=== PATIENT | male | born 1970 | race Caucasian/White ===

== ENCOUNTER 2021-01-21 09:08 | Outpatient (REF) | payer BC, SELFPAY ==
[2021-01-21 11:30] LABS: Estimated Average Glucose 169 mg/dL; Hemoglobin A1c % 7.5 %
[2021-01-21 11:31] LABS: Alanine Aminotransferase 38 U/L (0-40); Albumin Level 4.5 g/dL (3.5-5.0); Alkaline Phosphatase 60 U/L (39-117); Anion Gap 15 (12-20); Aspartate Amino Transferase 24 U/L (5-37); Bilirubin Total 1.3 mg/dL (0.0-1.0); Blood Urea Nitrogen 17 mg/dL (9-16); Calcium 9.7 mg/dL (8.4-10.2); Carbon Dioxide 26 mmol/L (22-29); Chloride 104 mmol/L (96-108); Cholesterol 175 mg/dL; Estimated Glomerular Filt Rate 59; Glucose Fasting 166 mg/dL (60-99); HDL Cholesterol 36 mg/dL; LDL Cholesterol Calculated 113 mg/dl; Potassium 4.3 mmol/L (3.3-5.1); Sodium 141 mmol/L (135-145); Total Protein 7.2 g/dL (6.5-8.0); Triglycerides 130 mg/dL
[2021-01-21 11:54] LABS: Prostate Specific Antigen 0.31 ng/mL (<0.05-4.0)
[2021-01-21 12:06] LABS: Microalbum/Creatinine Ratio Ur 12.3 ug/mg cr
== END 2021-01-21 09:09 | disposition home or self-care (01) ==
LOC: HO.MANLDS 09:08
PROVIDERS: PCP Internal Medicine; Visit Provider Internal Medicine
DX: E11.9 Type 2 diabetes mellitus without complications (principal); Z12.5 Encounter for screening for malignant neoplasm of prostate
CPT/HCPCS: 36415; 80053; 80061; 82043; 83036; 84153

== ENCOUNTER 2021-07-01 08:06 | Outpatient (REF) | payer BC, SELFPAY ==
[2021-07-01 11:15] LABS: Estimated Average Glucose 186 mg/dL; Hemoglobin A1c % 8.1 %
== END 2021-07-01 08:07 | disposition home or self-care (01) ==
LOC: HO.MANLDS 08:06
PROVIDERS: PCP Internal Medicine; Visit Provider Internal Medicine
DX: E11.9 Type 2 diabetes mellitus without complications (principal)
CPT/HCPCS: 36415; 83036

== ENCOUNTER 2021-12-16 07:54 | Outpatient (REF) | payer BC, SELFPAY ==
[2021-12-16 11:45] LABS: Estimated Average Glucose 140 mg/dL; Hemoglobin A1c % 6.5 %
[2021-12-16 12:00] LABS: Prostate Specific Antigen 0.22 ng/mL (<0.05-4.0)
[2021-12-16 12:00] LABS: Creatinine Urine 204.57 mg/dL; Microalbum/Creatinine Ratio Ur 12.2 ug/mg cr
[2021-12-16 13:37] LABS: Alanine Aminotransferase 49 U/L (0-40); Albumin Level 4.3 g/dL (3.5-5.0); Alkaline Phosphatase 53 U/L (39-117); Anion Gap 15 (12-20); Aspartate Amino Transferase 26 U/L (5-37); Bilirubin Total 0.8 mg/dL (0.0-1.0); Blood Urea Nitrogen 13 mg/dL (9-16); Calcium 9.5 mg/dL (8.4-10.2); Carbon Dioxide 28 mmol/L (22-29); Cholesterol 174 mg/dL; Estimated Glomerular Filt Rate > 60; Glucose Random 126 mg/dL (60-115); HDL Cholesterol 38 mg/dL; LDL Cholesterol Calculated 118 mg/dl; Potassium 4.9 mmol/L (3.3-5.1); Sodium 143 mmol/L (135-145); Triglycerides 94 mg/dL
[2021-12-16 14:16] LABS: Chloride 105 mmol/L (96-108)
== END 2021-12-16 07:55 | disposition home or self-care (01) ==
LOC: HO.MANLDS 07:54
PROVIDERS: Visit Provider Internal Medicine
DX: Z12.5 Encounter for screening for malignant neoplasm of prostate (principal); E11.9 Type 2 diabetes mellitus without complications
CPT/HCPCS: 36415; 80053; 80061; 82043; 83036; 84153

== ENCOUNTER 2022-06-02 07:55 | Outpatient (REF) | payer BC, SELFPAY ==
[2022-06-02 12:04] LABS: Estimated Average Glucose 166 mg/dL; Hemoglobin A1c % 7.4 %
[2022-06-02 12:33] LABS: Alanine Aminotransferase 48 U/L (0-40); Albumin Level 4.3 g/dL (3.5-5.0); Alkaline Phosphatase 55 U/L (39-117); Anion Gap 12 (12-20); Aspartate Amino Transferase 25 U/L (5-37); Bilirubin Total 0.9 mg/dL (0.0-1.0); Blood Urea Nitrogen 17 mg/dL (9-16); Calcium 9.8 mg/dL (8.4-10.2); Carbon Dioxide 30 mmol/L (22-29); Chloride 106 mmol/L (96-108); Cholesterol 178 mg/dL; Estimated Glomerular Filt Rate > 60; Glucose Fasting 144 mg/dL (60-99); HDL Cholesterol 35 mg/dL; LDL Cholesterol Calculated 116 mg/dl; Potassium 4.7 mmol/L (3.3-5.1); Sodium 143 mmol/L (135-145); Triglycerides 135 mg/dL
[2022-06-02 12:40] LABS: Prostate Specific Antigen 0.29 ng/mL (<0.05-4.0)
[2022-06-02 12:52] LABS: Creatinine Urine 301.26 mg/dL
[2022-06-02 15:05] LABS: Microalbum/Creatinine Ratio Ur 9.6 ug/mg cr
== END 2022-06-02 07:56 | disposition home or self-care (01) ==
LOC: HO.MANLDS 07:55
PROVIDERS: Visit Provider Internal Medicine
DX: Z12.5 Encounter for screening for malignant neoplasm of prostate (principal); E11.9 Type 2 diabetes mellitus without complications
CPT/HCPCS: 36415; 80053; 80061; 82043; 83036; 84153

== ENCOUNTER 2023-05-25 08:30 | Outpatient (REF) | payer BC, SELFPAY ==
[2023-05-25 13:50] LABS: Alanine Aminotransferase 26 U/L (0-40); Albumin Level 4.2 g/dL (3.5-5.0); Alkaline Phosphatase 60 U/L (39-117); Anion Gap 14 (12-20); Aspartate Amino Transferase 19 U/L (5-37); Bilirubin Total 0.6 mg/dL (0.0-1.0); Blood Urea Nitrogen 15 mg/dL (9-16); Calcium 9.7 mg/dL (8.4-10.2); Carbon Dioxide 28 mmol/L (22-29); Chloride 101 mmol/L (96-108); Cholesterol 176 mg/dL (<200); Estimated Glomerular Filt Rate > 60; Glucose Random 184 mg/dL (60-115); HDL Cholesterol 34 mg/dL (>40); LDL Cholesterol Calculated 122 mg/dL (<100); Potassium 5.1 mmol/L (3.3-5.1); Sodium 138 mmol/L (135-145); Total Protein 7.5 g/dL (6.5-8.0); Triglycerides 103 mg/dL (<150)
[2023-05-25 13:53] LABS: Estimated Average Glucose 163 mg/dL; Hemoglobin A1c % 7.3 % (<6.0)
[2023-05-25 14:12] LABS: Prostate Specific Antigen 0.25 ng/mL (<0.05-4.0)
[2023-05-25 14:14] LABS: Microalbum/Creatinine Ratio Ur 27.4 ug/mg cr (<30)
== END 2023-05-25 08:31 | disposition home or self-care (01) ==
LOC: HO.MANLDS 08:30
PROVIDERS: Visit Provider Internal Medicine
DX: Z12.5 Encounter for screening for malignant neoplasm of prostate (principal); E11.9 Type 2 diabetes mellitus without complications
CPT/HCPCS: 36415; 80053; 80061; 82043; 82570; 83036; 84153

== ENCOUNTER 2023-08-30 07:57 | Outpatient (REF) | payer BC, SELFPAY ==
[2023-08-30 13:57] LABS: Estimated Average Glucose 171 mg/dL; Hemoglobin A1c % 7.6 % (<6.0)
[2023-08-30 14:13] LABS: Alanine Aminotransferase 24 U/L (0-40); Albumin Level 4.2 g/dL (3.5-5.0); Alkaline Phosphatase 54 U/L (39-117); Anion Gap 14 (12-20); Aspartate Amino Transferase 21 U/L (5-37); Bilirubin Total 0.5 mg/dL (0.0-1.0); Blood Urea Nitrogen 12 mg/dL (9-16); Calcium 9.1 mg/dL (8.4-10.2); Carbon Dioxide 24 mmol/L (22-29); Chloride 108 mmol/L (96-108); Cholesterol 179 mg/dL (<200); Estimated Glomerular Filt Rate > 60; Glucose Random 162 mg/dL (60-115); HDL Cholesterol 40 mg/dL (>40); LDL Cholesterol Calculated 111 mg/dL (<100); Potassium 4.2 mmol/L (3.3-5.1); Sodium 142 mmol/L (135-145); Triglycerides 144 mg/dL (<150)
== END 2023-08-30 07:58 | disposition home or self-care (01) ==
LOC: HO.MANLDS 07:57
PROVIDERS: Visit Provider Internal Medicine
DX: E11.9 Type 2 diabetes mellitus without complications (principal)
CPT/HCPCS: 36415; 80053; 80061; 83036

== ENCOUNTER 2024-05-29 07:50 | Outpatient (REF) | payer BC, SELFPAY ==
[2024-05-29 08:41] LABS: Estimated Average Glucose 226 mg/dL; Hemoglobin A1C 323.8335 umol/L; Hemoglobin A1c % 9.5 % (<6.0); Total Hemoglobin (HGBA1C) 4040.0787 umol/L
[2024-05-29 09:07] LABS: Alanine Aminotransferase 44 U/L (0-40); Albumin Level 4.3 g/dL (3.5-5.0); Alkaline Phosphatase 57 U/L (39-117); Anion Gap 14 (12-20); Aspartate Amino Transferase 23 U/L (5-37); Bilirubin Total 0.7 mg/dL (0.0-1.0); Blood Urea Nitrogen 14 mg/dL (9-16); Carbon Dioxide 27 mmol/L (22-29); Chloride 106 mmol/L (96-108); Cholesterol 180 mg/dL (<200); Estimated Glomerular Filt Rate > 60; Glucose Random 232 mg/dL (60-115); HDL Cholesterol 38 mg/dL (>40); LDL Cholesterol Calculated 112 mg/dL (<100); Sodium 142 mmol/L (135-145); Total Protein 7.6 g/dL (6.5-8.0); Triglycerides 152 mg/dL (<150)
== END 2024-05-29 07:51 | disposition home or self-care (01) ==
LOC: HO.LAB 07:50
PROVIDERS: PCP Internal Medicine; Visit Provider Internal Medicine
DX: E11.9 Type 2 diabetes mellitus without complications (principal)
CPT/HCPCS: 36415; 80053; 80061; 83036

== ENCOUNTER 2024-12-17 07:03 | Outpatient (REF) | payer BC, SELFPAY ==
--- OUTSIDE RECORDS SUMMARY | 2024-12-17 07:06 | XMS_ITS | Encounter Summary ---
Author Organization [facility] Address [address] [address] Phone Care Team Providers Care Manager Paper Name Role Phone Jose Lea DO Primary Care Provider [phone] Jose Lea DO Unavailable Encounter Details Date Type Department Care Team (Late st Contact Info) Description 05/08/2018 Ancillary Orders Virtual Department [address] [place] [address] Savanna Villagran PA-C [address] [place] [address] Cough Social History Tobacco Use Types Packs/Day Years Used Date Smoking Tobacco: Never Assessed Sex and Gender Information Value Date Recorded Sex Assigned at Not on file Legal Sex Male 9:33 PM EDT Gender Identity Not on file Sexual Orientation Not on file documented as of this encounter Plan of Treatment Not on file documented as of this encounter Visit Diagnoses Diagnosis Cough documented in this encounter Care Teams Manager Paper Relationship Specialty Start Date End Date Jose Lea DO PCP - General 01/17/17 Jose Lea DO [address] [place] [phone] Insurance Assigned Provider 07/09/23 documented as of this encounter Additional Source Comments The information contained in this document represents components of the legal health record. It is not the complete legal health record.[facility]
--- OUTSIDE RECORDS SUMMARY | 2024-12-17 07:06 | XMS_ITS | Clinical Summary ---
Author Organization [facility] Address [address] [place] [address] [place] [phone] Phone Care Team Providers Care Shuttle Inspector Name Role Phone Jose Lea DO Primary Care Provider [phone] Jose Lea DO Unavailable Social History Tobacco Use Types Packs/Day Years Used Date Smoking Tobacco: Never Assessed Education Answer Date Recorded Are you interested in more education? Not on terence e 07/10/2023 Are you concerned about learning? Not on file 07/10/2023 No 07/10/2023 No 07/10/2023 Digital Access Answer Date Recorded No 07/10/2023 No 07/10/2023 Reliable internet access at home? Not on file 07/10/2023 Device with a working camera? Not on file Sex and Gender Information Value Date Recorded Sex Assigned at Not on file Legal Sex Male 9:33 PM EDT Gender Identity Not on file Sexual Orientation Not on file Plan of Treatment Not on file Medical Devices Not on file Insurance [facility] PPO EPO PPO EPO PPO EPO [facility] [place] [address] [place] [address] PPO EPO [facility] PPO EPO [facility] PPO EPO [facility] PPO EPO Care Teams Shuttle Inspector Relationship Specialty Start Date End Date Jose Lea DO PCP - General 01/17/17 Jose Lea DO [address] [place] [id number] Insurance Assigned Provider 07/09/23 Additional Source Comments The information contained in this document represents components of the legal health record. It is not the complete legal health record.[facility]
--- OUTSIDE RECORDS SUMMARY | 2024-12-17 07:06 | XMS_ITS | Encounter Summary ---
Author Organization [facility] Address [address] [facility] [address] [place] [address] Phone Care Team Providers Care Auto Hiker Name Role Phone Jose Lea DO Primary Care Provider [phone] Jose Lea DO Unavailable Encounter Details Date Type Department Care Team (Late st Contact Info) Description 05/08/2018 Ancillary Orders [facility], X-Ray - [address] [address] Savanna Villagran, EBN [address] [place] [address] Cough Social History Tobacco Use Types Packs/Day Years Used Date Smoking Tobacco: Never Assessed Sex and Gender Information Value Date Recorded Sex Assigned at Not on file Legal Sex Male 9:33 PM EDT Gender Identity Not on file Sexual Orientation Not on file documented as of this encounter Plan of Treatment Not on file documented as of this encounter Results * XR CHEST PA AND LATERAL 2 VIEWS (05/08/2018 12:53 PM EST) Anatomical Region Laterality Modality Chest Radiographic Swapna ging 05/08/2018 1:10 PM EST Impressions 05/08/2018 2:07 PM EST No acute cardiopulmonary abnormality detected. POS - [id number] Edited by: Josie Hunter on 05/08/2018 1:16 PM Narrative 05/08/2018 2:07 PM EST PA and lateral views of the chest obtained. No prior. Heart and mediastinal contours unremarkable. Mild hyperinflation. No infiltrates or effusions. No free air or pneumothorax. No compression deformity. Procedure Note Dian Conklin MD - 05/08/2018 PA and lateral views of the chest obtained. No prior. Heart andmediastinal contours unremarkable. Mild hyperinflation. No infiltrates oreffusions. No free air or pneumothorax. No compression deformity. IMPRESSION: No acute cardiopulmonary abnormality detected. POS - [id number] Edited by: Josie Hunter on 05/08/2018 1:16 PM July Sparkle CONTRERAS IMG XR CHEST Final Result documented in this encounter Visit Diagnoses Diagnosis Cough Cough documented in this encounter Care Teams Auto Hiker Relationship Specialty Start Date End Date Jose Lea DO PCP - General 01/17/17 Jose Lea DO [address] [place] [id number] Insurance Assigned Provider 07/09/23 documented as of this encounter Additional Source Comments The information contained in this document represents components of the legal health record. It is not the complete legal health record.[facility]
--- OUTSIDE RECORDS SUMMARY | 2024-12-17 07:06 | XMS_ITS | Encounter Summary ---
Author Organization [facility] Address [address] [address] Phone Care Team Providers Care Electrical Tests Supervisor Name Role Phone ChrisJose magallanes Primary Care Provider [phone] ChrisJose magallanes Unavailable Encounter Details Date Type Department Care Team ([facility] st Contact Info) Description 05/30/2024 Transcribe Orders Virtual Department [address] [place] [address] Jose Lea DO [address] [facility] [place] [address] [place] [address] [email or web address] Right hip pain (Primary Dx); Low back pain, unspecified back pain laterality, unspecified chronicity, unspecified whether sciatica present Social History Tobacco Use Types Packs/Day Years [...] as of this encounter Results * XR LUMBOSACRAL SPINE 2-3 VIEWS (06/06/2024 12:35 PM EST) Anatomical Region Laterality Modality L-spine Computed Radiogr aphy 06/07/2024 9:47 AM EST Impressions 06/07/2024 9:50 AM EST Degenerative changes of the lumbar spine, most pronounced at L5-S1. Preserved right hip joint space. Narrative 06/07/2024 9:50 AM EST XR HIP 2 VW RIGHT PLUS PELVIS, XR LUMBOSACRAL SPINE 2-3 VIEWS Referring clinician's provided indication for this examination in [facility]: Outside Radiology Order; back pain COMPARISON: None FINDINGS: Slight dextrocurvature of the lumbar spine. There is straightening of the lumbar lordosis. Trace retrolisthesis of L5 on S1. Lumbar vertebral body heights are maintained. Moderate disc height loss at L5-S1 with vacuum phenomenon. Multilevel facet arthropathy. Mild degenerative changes of the sacroiliac joints and pubic symphysis. Frontal evaluation of the left hip demonstrates preserved joint space. Preserved right hip joint space. No displaced fracture. Procedure Note Luigi Brown MD - 06/07/2024 XR HIP 2 VW RIGHT PLUS PELVIS, XR LUMBOSACRAL SPINE 2-3 VIEWS Referring clinician's provided indication for this examination in [facility]:Outside Radiology Order; back pain COMPARISON: None FINDINGS: Slight dextrocurvature of the lumbar spine. There is straightening of thelumbar lordosis. Trace retrolisthesis of L5 on S1. Lumbar vertebral bodyheights are maintained. Moderate disc height loss at L5-S1 with vacuumphenomenon. Multilevel facet arthropathy. Mild degenerative changes of thesacroiliac joints and pubic symphysis. Frontal evaluation of the left hipdemonstrates preserved joint space. Preserved right hip joint space. Nodisplaced fracture. IMPRESSION: Degenerative changes of the lumbar spine, most pronounced at L5-S1. Preserved right hip joint space. us Jose A Bigda DO IMG XR SPINE Final Result * XR HIP 2 VW RIGHT PLUS PELVIS (06/06/2024 12:35 PM EST) Anatomical Region Laterality Modality Hip Right Computed Radiogr aphy 06/07/2024 9:47 AM EST Impressions 06/07/2024 9:50 AM EST Degenerative changes of the lumbar spine, most pronounced at L5-S1. Preserved right hip joint space. Narrative 06/07/2024 9:50 AM EST XR HIP 2 VW RIGHT PLUS PELVIS, XR LUMBOSACRAL SPINE 2-3 VIEWS Referring clinician's provided indication for this examination in [facility]: Outside Radiology Order; back pain COMPARISON: None FINDINGS: Slight dextrocurvature of the lumbar spine. There is straightening of the lumbar lordosis. Trace retrolisthesis of L5 on S1. Lumbar vertebral body heights are maintained. Moderate disc height loss at L5-S1 with vacuum phenomenon. Multilevel facet arthropathy. Mild degenerative changes of the sacroiliac joints and pubic symphysis. Frontal evaluation of the left hip demonstrates preserved joint space. Preserved right hip joint space. No displaced fracture. Procedure Note Luigi Brown MD - 06/07/2024 XR HIP 2 VW RIGHT PLUS PELVIS, XR LUMBOSACRAL SPINE 2-3 VIEWS Referring clinician's provided indication for this examination in [facility]:Outside Radiology Order; back pain COMPARISON: None FINDINGS: Slight dextrocurvature of the lumbar spine. There is straightening of thelumbar lordosis. Trace retrolisthesis of L5 on S1. Lumbar vertebral bodyheights are maintained. Moderate disc height loss at L5-S1 with vacuumphenomenon. Multilevel facet arthropathy. Mild degenerative changes of thesacroiliac joints and pubic symphysis. Frontal evaluation of the left hipdemonstrates preserved joint space. Preserved right hip joint space. Nodisplaced fracture. IMPRESSION: Degenerative changes of the lumbar spine, most pronounced at L5-S1. Preserved right hip joint space. us Jose A Bigda DO IMG XR PELVIS Final Result documented in this encounter Visit Diagnoses Diagnosis Right hip pain- Primary Pain in joint, pelvic region and thigh Low back pain, unspecified back pain laterality, unspecified chronicity, unspecified whether sciatica present Right hip pain Pain in joint, pelvic region and thigh Low back pain, unspecified back pain laterality, unspecified chronicity, unspecified whether sciatica present documented in this encounter Care Teams Electrical Tests Supervisor Relationship Specialty Start Date End Date Jose Lea DO PCP - General 01/17/17 Jose Lea DO [address] [place] [phone] Insurance Assigned Provider 07/09/23 documented as of this encounter Additional Source Comments The information contained in this document represents components of the legal health record. It is not the complete legal health record.[facility]
[2024-12-17 07:34] LABS: Hemoglobin A1C 185.9645 umol/L; Total Hemoglobin (HGBA1C) 3942.6385 umol/L
[2024-12-17 07:53] LABS: Alanine Aminotransferase 24 U/L (0-40); Albumin Level 4.5 g/dL (3.5-5.0); Alkaline Phosphatase 45 U/L (39-117); Anion Gap 14 (12-20); Aspartate Amino Transferase 45 U/L (5-37); Blood Urea Nitrogen 26 mg/dL (9-16); Calcium 9.5 mg/dL (8.4-10.2); Carbon Dioxide 25 mmol/L (22-29); Chloride 107 mmol/L (96-108); Cholesterol 213 mg/dL (<200); Estimated Glomerular Filt Rate > 60; HDL Cholesterol 36 mg/dL (>40); Potassium 5.0 mmol/L (3.3-5.1); Sodium 141 mmol/L (135-145); Total Protein 7.4 g/dL (6.5-8.0); Triglycerides 138 mg/dL (<150)
== END 2024-12-17 07:04 | disposition home or self-care (01) ==
LOC: HO.LAB 07:03
PROVIDERS: PCP Internal Medicine; Visit Provider Internal Medicine
DX: E11.9 Type 2 diabetes mellitus without complications (principal)
CPT/HCPCS: 36415; 80053; 80061; 83036